=== PATIENT | female | born 1965 | race Caucasian/White ===

== ENCOUNTER 2017-09-10 21:40 | Emergency (ER) | payer MEDICAID, OTHER ==
[2017-09-10] MEDS ORDERED: CHLORDIAZEPOXIDE 25MG PREPK#6 BTL TAKEHOME ONE (22:21)
--- NOTE | 2017-09-10 22:21 | EDPHY ---
H & P Time Seen by Provider: 09/10/17 22:14 HPI/ROS: CHIEF COMPLAINT: Medication for detox HISTORY OF PRESENT ILLNESS: Patient had her mother unexpectedly recently and has been drinking steadily for the past week. She went to detox and was referred here for Librium. The patient says she feels a little bit shaky but does not have nausea vomiting or diarrhea. No confusion. He is ambulatory. REVIEW OF SYSTEMS: Eye: no change in vision ENT: no sore throat Cardiac: no chest pain or syncope Pulmonary: no cough or SOB Abdomen: no vomiting, diarrhea, abdominal pain Musculoskeletal: no back pain Skin: no rash Neuro: no headache Constitutional: no fever : no urinary symptoms A comprehensive 10 point review of systems is otherwise negative aside from elements mentioned in the history of present illness. PAST MEDICAL HISTORY: Includes alcoholism, cholecystectomy, gastric bypass, iron deficiency. Social history: Recent alcohol, last drink 4:30 p.m. Today General Appearance: Alert and conversant, cooperative. Eyes: No scleral icterus. ENT, Mouth: Normal mucous membranes. Respiratory: Normal respiratory effort, breath sounds equal, lungs are clear to auscultation. Cardiovascular: Regular rate and rhythm. Gastrointestinal: Abdomen is soft and non tender. Specifically does not have Alberts sign or right upper quadrant tenderness. Neurological: Alert, face symmetric, normal motor and sensory in extremities. Not actively tremulous or shaky, not confused. Skin: Warm and dry, no rashes. Musculoskeletal: No peripheral edema. Psychiatric: Depressed affect, but cooperative. Emergency Department course/MDM: Appears clinically stable to go to detox with Librium. Does not appear to be actively be in withdrawal at this time. Smoking Status: Heavy smoker Constitutional: Initial Vital Signs Temperature (C) 36.5 C 09/10/17 21:58 Heart Rate 71 09/10/17 21:58 Respiratory Rate 18 09/10/17 21:58 Blood Pressure 115/77 09/10/17 21:58 O2 Sat (%) 99 09/10/17 21:58 O2 Delivery Mode Room Air Allergies/Adverse Reactions: latex Allergy (Verified 08/24/14 12:41) Home Medications: Medication Instructions Recorded FLUoxetine 09/10/17 Hydroxyzine HCl 09/10/17 LORAZEPAM 09/10/17 TOPIRAMATE 09/10/17 buPROPion 09/10/17 traMADol 09/10/17 Departure - Departure Disposition: Home, Routine, Self-Care Clinical Impression: Alcoholic intoxication Qualifiers: Complication of substance-induced condition: uncomplicated Qualified Code(s): F10.920 - Alcohol use, unspecified with intoxication, uncomplicated Condition: Good Instructions: Chlordiazepoxide/Clidinium (By mouth), Alcohol Intoxication (ED) , Alcohol Dependence (ED) Referrals: NONE *PRIMARY CARE P,. [Primary Care Provider] - As per Instructions (Dr. Micha Elmore your doctor in [place]) [facility] Hours [Outside] - As per Instructions
[2017-09-11 06:15] VITALS: BP 114/74; PULSE 67; RESP 16; TEMP 98.1; O2SAT 97
== END 2017-09-10 22:30 | disposition home or self-care (01) ==
DX: F10.920 Alcohol use, unspecified with intoxication, uncomplicated (principal); F17.200 Nicotine dependence, unspecified, uncomplicated; Z91.040 Latex allergy status

== ENCOUNTER 2018-10-10 05:29 | Inpatient (IN) | payer SELFPAY ==
--- NOTE | 2018-10-10 06:00 | EDPHY ---
H & P Source: Patient - Medical/Surgical History Hx Asthma: Yes Hx Chronic Respiratory Disease: No Hx Diabetes: No Hx Cardiac Disease: No Hx Renal Disease: No Hx Cirrhosis: No Hx Alcoholism: No Hx HIV/AIDS: No Hx Splenectomy or Spleen Trauma: No Other PMH: ETOH, CHOLY, GASTRIC BYPASS, IRON DEFICIENCY - Social History Smoking Status: Heavy smoker Time Seen by Provider: 10/10/18 06:00 HPI/ROS: HPI CHIEF COMPLAINT: Logan. HISTORY OF PRESENT ILLNESS: This is a 53-year-old female she presents emergency room with her stating that she is manic. States she is having disorganized thoughts, racing thoughts, she reports she has not slept in 7 days. She feels manic. She also reports she feels anxious. Her brought her here for mental health help. She denies want hurt herself or anybody else. She does states she feels manic. Of note patient refused to open her eyes and keeps a washcloth across her eyes. Additionally she refuses to have the lights put on. Also patient directs the conversation and will not allowed to ask questions. She over talks you with pressured speech. Past Medical History: Significant medical history PTSD, anxiety, anemia Past Surgical History: No recent surgical history Social History: Lives locally, at bedside. Family History: Noncontributory ROS REVIEW OF SYSTEMS: Limited to patient's mental state. Exam Constitutional triage nursing summary reviewed, vital signs reviewed, awake/ alert. Eyes normal conjunctivae and sclera, EOMI, PERRLA. HENT normal inspection, atraumatic, moist mucus membranes, no epistaxis, neck supple/ no meningismus, no raccoon eyes. Respiratory clear to auscultation bilaterally, normal breath sounds, no respiratory distress, no wheezing. Cardiovascular rate normal, regular rhythm, no murmur, no edema, distal pulses normal. Gastrointestinal soft, non-tender, no rebound, no guarding, normal bowel sounds, no distension, no pulsatile mass. Genitourinary no CVA tenderness. Musculoskeletal no midline vertebral tenderness, full range of motion, no calf swelling, no tenderness of extremities, no meningismus, good pulses, neurovascularly intact. Skin pink, warm, & dry, no rash, skin atraumatic. Neurologic awake, alert and oriented x 3, AAOx3, moves all 4 extremities equally, motor intact, sensory intact, CN II-XII intact, normal cerebellar, normal vision, normal speech. Psychiatric disorganized thoughts, pressured speech Heme/Lymph/Immune no lymphadenopathy. Differential Diagnosis: Includes but is not limited to in a particular order acute logan, psychosis, bipolar disorder, anxiety, drug intoxication Medical Decision Making: Plan for this patient I have ordered her 10 mg Zyprexa and she feels anxious, has pressured speech and is tangental with disorganized thoughts. Re-evaluation: Plan for patient 10 mg Zyprexa, IV establishment blood draw. Patient will be placed on MIH and needs mental health evaluation. 0809AM: Patient signed over to Dr. Gonzalez. pending eval. (Hubert Zhang) Constitutional: Initial Vital Signs Temperature (C) 37.3 C 10/10/18 06:35 Heart Rate 92 10/10/18 06:35 Respiratory Rate 20 10/10/18 06:35 Blood Pressure 101/69 10/10/18 06:35 O2 Sat (%) 97 10/10/18 06:35 O2 Delivery Mode Room Air Allergies/Adverse Reactions: latex Allergy (Verified 10/10/18 06:34) Home Medications: Medication Instructions Recorded Duloxetine HCl 40 mg PO DAILY 10/10/18 FLUoxetine [Prozac 20 MG (*)] 60 mg PO DAILY 10/10/18 LORazepam [Lorazepam] 1 mg PO BID 10/10/18 Mosquero Carbonate [Mosquero 150 mg PO BID 10/10/18 Carbonate] Prazosin HCl [Minipress 1mg (*)] 2 mg PO HS 10/10/18 Topiramate [Topiramate] 50 mg PO BID 10/10/18 buPROPion [Wellbutrin 100mg (*)] 300 mg PO HS 10/10/18 hydrOXYzine HCL [hydrOXYzine HCL 25 mg PO 5XD 10/10/18 (RX)] Medical Decision Making ED Course/Re-evaluation: 7:00 a.m.-I assumed care of this patient at shift change. She presents with acute logan and is on an MIH. Given Zyprexa 10mg orally during the night cleaner. Awaiting mental health evaluation. 3pm: This patient has been seen by mental health and will be admitted to [facility]. EMTALA completed. (Marbella Gonzalez) I saw this patient again at 4:00 p.m.. She had received Zyprexa orally at about 3:00 p.m.. She still agitated. She agrees to take Ativan orally. 5:20 p.m. Patient is still agitated. She is given Benadryl 50 mg and Haldol 5 mg IM (Ruslan Horne) Differential Diagnosis: Differential diagnosis includes though it is not limited to suicidal ideation, overdose, acute psychosis, self-injury, alcohol withdrawal. (Marbella Gonzalez) - Data Points Laboratory Results: Laboratory Results 10/10/18 06:35 10/10/18 06:35 10/10/18 10/10/18 10/10/18 06:35 06:35 06:35 WBC 6.09 10^3/uL 10^3/uL (3.80-9.50) RBC 4.60 10^6/uL 10^6/uL (4.18-5.33) Hgb 13.1 g/dL g/dL (12.6-16.3) Hct 41.0 % % (38.0-47.0) MCV 89.1 fL fL (81.5-99.8) MCH 28.5 pg pg (27.9-34.1) MCHC 32.0 g/dL L g/dL (32.4-36.7) RDW 16.4 % H % (11.5-15.2) Plt Count 280 10^3/uL 10^3/uL (150-400) MPV 8.9 fL fL (8.7-11.7) Neut % (Auto) 59.3 % % (39.3-74.2) Lymph % (Auto) 25.9 % % (15.0-45.0) Durham % (Auto) 6.7 % % (4.5-13.0) Eos % (Auto) 7.1 % % (0.6-7.6) Baso % (Auto) 0.8 % % (0.3-1.7) Nucleat RBC Rel Count 0.0 % % (0.0-0.2) Absolute Neuts (auto) 3.61 10^3/uL 10^3/uL (1.70-6.50) Absolute Lymphs (auto) 1.58 10^3/uL 10^3/uL (1.00-3.00) Absolute Monos (auto) 0.41 10^3/uL 10^3/uL (0.30-0.80) Absolute Eos (auto) 0.43 10^3/uL H 10^3/uL (0.03-0.40) Absolute Basos (auto) 0.05 10^3/uL 10^3/uL (0.02-0.10) Absolute Nucleated RBC 0.00 10^3/uL 10^3/uL (0-0.01) Immature Gran % 0.2 % % (0.0-1.1) Immature Gran # 0.01 10^3/uL 10^3/uL (0.00-0.10) Sodium 142 mEq/L mEq/L (135-145) Potassium 4.7 mEq/L mEq/L (3.5-5.2) Chloride 108 mEq/L mEq/L (97-110) Carbon Dioxide 24 mEq/l mEq/l (22-31) Anion Gap 10 mEq/L mEq/L (6-14) BUN 17 mg/dL mg/dL (7-23) Creatinine 0.7 mg/dL mg/dL (0.6-1.0) Estimated GFR > 60 Glucose 91 mg/dL mg/dL (70-100) Calcium 9.3 mg/dL mg/dL (8.5-10.4) Salicylates < 1.0 mg/dL L mg/dL (2.0-20.0) Urine Opiates Screen Acetaminophen < 10 mcg/mL L mcg/mL (10-30) Urine Barbiturates Ur Phencyclidine Scrn Ur Amphetamine Screen U Benzodiazepines Scrn Mosquero < 0.2 mEq/L L mEq/L (0.6-1.2) Urine Cocaine Screen U Marijuana (THC) Screen Ethyl Alcohol < 10 mg/dL mg/dL (0-10) 10/10/18 06:30 WBC RBC Hgb Hct MCV MCH MCHC RDW Plt Count MPV Neut % (Auto) Lymph % (Auto) Durham % (Auto) Eos % (Auto) Baso % (Auto) Nucleat RBC Rel Count Absolute Neuts (auto) Absolute Lymphs (auto) Absolute Monos (auto) Absolute Eos (auto) Absolute Basos (auto) Absolute Nucleated RBC Immature Gran % Immature Gran # Sodium Potassium Chloride Carbon Dioxide Anion Gap BUN Creatinine Estimated GFR Glucose Calcium Salicylates Urine Opiates Screen NEGATIVE (NEGATIVE) Acetaminophen Urine Barbiturates NEGATIVE (NEGATIVE) Ur Phencyclidine Scrn NEGATIVE (NEGATIVE) Ur Amphetamine Screen NEGATIVE (NEGATIVE) U Benzodiazepines Scrn NEGATIVE (NEGATIVE) Mosquero Urine Cocaine Screen NEGATIVE (NEGATIVE) U Marijuana (THC) Screen NON-NEGATIVE H (NEGATIVE) Ethyl Alcohol Medications Given: Discontinued Medications Acetaminophen (Tylenol) 650 mg PO EDNOW ONE Stop: 10/10/18 08:00 Last Admin: 10/10/18 08:02 Dose: 650 mg Lorazepam (Ativan) 2 mg PO EDNOW ONE Stop: 10/10/18 16:21 Last Admin: 10/10/18 16:27 Dose: 2 mg Nicotine (Nicoderm Cq) 21 mg TD EDNOW ONE Stop: 10/10/18 15:28 Last Admin: 10/10/18 15:31 Dose: 21 mg Olanzapine (Olanzapine) 10 mg PO ONCE ONE Stop: 10/10/18 06:10 Last Admin: 10/10/18 06:27 Dose: 10 mg Olanzapine (Zyprexa Zydis) 10 mg PO EDNOW ONE Stop: 10/10/18 15:04 Last Admin: 10/10/18 15:10 Dose: 10 mg Departure - Departure Disposition: [facility] IP Clinical Impression: Logan Condition: Fair Referrals: NONE *PRIMARY CARE P,. [Primary Care Provider] - As per Instructions
[2018-10-10] MEDS ORDERED: OLANZapine 5 MG TAB PO ONE (06:09)
[2018-10-10 06:43] LABS: PLATELET COUNT 280 10^3/uL (150-400)
[2018-10-10] MEDS ORDERED: ACETAMINOPHEN 325 MG TAB PO ONE (07:59)
[2018-10-10] MEDS ORDERED: OLANZapine DISINTEGR 10 MG TAB PO ONE (15:03)
[2018-10-10] MEDS ORDERED: NICOTINE 21 MG/24 HR PATCH TD ONE (15:27)
[2018-10-10] MEDS ORDERED: LORazepam 1 MG TAB PO ONE (16:20)
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
--- NOTE | 2018-10-10 17:15 | ASMTTCLDSP ---
TLC Discharge Disposition Disposition: Answers: Admit Disposition Notes: Notes: In consultation with [facility] ED physician, Ruslan Horne MD and on-call collection teller, Leonidas Huggins MD, both concurred that pt appears to meet 27-65 criteria requiring psychiatric hospitalization as pt appears to be at risk of harm to self due to a mental illness condition. Pt was read the Patient Rights and Responsibilities Statement on 10/10/18 at 15:45 the original placed on chart, and pt was given photocopy of Rights. Pt signed the Patient Rights. Pt was given the [facility] prohibited belongings list while in the ED.: Discharge Concerns/Recommendations: Notes: Admit to [facility] inpt BH unit. Was patient given the Answers: Yes Inpatient Behavioral Health Prohibited Belongings List while in the ED? For inpatient Leonidas Huggins AP[facility] admission, the following psychiatrist agreed to accept patient for admission to Behavioral Health ([facility]): Type of Hold: Answers: M1/72-hour Hold Hold initiated by: Answers: ED Physician Date Signed: 10/10/2018 05:15 PM Electronically Signed By:Beverly Durand
[2018-10-10] MEDS ORDERED: HALOPERIDOL LACT 5 MG/ML INJ IVP ONE (17:24)
--- NOTE | 2018-10-10 18:12 | PDCONSULT ---
Grocery Store Clerk Note: The patient is a 53-year-old female with past medical history of bipolar and depression who presented to the emergency room with complaints of not sleeping since about August of this year. According to her and her the patient sleeps maybe 1 hr a day and this is been ongoing since about August of this year. However in the last few weeks it has worsened patient has been sleeping very little if at all. In the last few days she has started acting weird ir with some nonsensical speech and irritability. However she denied any nausea vomiting, dysuria diarrhea chest pain or other physical symptoms to me. Past medical history Bipolar Past surgical history Gastric bypass Social history She smokes tobacco but would not say how much She also uses marijuana Family history Noncontributory Allergies Latex Medications As outlined in the medication reconciliation However patient says that she has progressively been getting less and less of these and may have stopped completely lately Review of systems Ten point review of systems was negative except as outlined above in HPI Examination Vitals blood pressure is 111/59 heart rate is 78, respirations 16, saturating 97 % on room air, temperature is 36.4 degrees C General well-nourished well-developed female talking to herself. HEENT PERRLA mucous members moist pink and acyanotic head is atraumatic normocephalic Lungs are clear to auscultation bilaterally Cardiovascular regular rhythm and rate no murmurs rubs or gallops Abdomen is soft nontender nondistended in all 4 quadrants with positive bowel sounds no guarding or rebound no organomegaly no CVA tenderness Extremities are with no clubbing cyanosis edema or calf pain Skin with no lesions rashes or ecchymosis Neuro cranial nerves 2-12 grossly intact no focal neurologic deficits Lymph no lymphadenopathy Musculoskeletal strength is 5/5 range of motion is full and normal Assessment plan 53-year-old female with past medical history of bipolar disorder likely off of her meds presents with manic behavior not sleeping and acute psychosis I reviewed the chart and discussed the case with the emergency room physician the patient has been given Haldol and Ativan for her agitation. I reviewed her chart and records as the patient is new to me. Aside from her acute decompensation she has no lab abnormalities and her vitals are all within normal limits her examination is reassuring as well. I recommend admission to [facility] for re-initiation of her medications for bipolar disorder along with p.r.n. Ativan for agitation and insomnia.
[2018-10-10] MEDS ORDERED: OLANZapine DISINTEGR 10 MG TAB PO PRN (21:53)
[2018-10-10] MEDS ORDERED: MAGNESIUM HYDROXIDE 30 ML UDCUP PO PRN (21:53)
[2018-10-10] MEDS ORDERED: MAG HYDROX/AL HYDROX/SIMETH 30 ML UDCUP PO PRN (21:53)
[2018-10-10] MEDS ORDERED: NICOTINE POLACRILEX 2 MG GUM B PRN (21:53)
[2018-10-11] MEDS ORDERED: NICOTINE 21 MG/24 HR PATCH TD SCH (09:00)
--- NOTE | 2018-10-11 11:06 | ASMTBHMTP ---
Master Treatment Plan Master Treatment Plan Answers: Mood Instability with for: Psychosis Date: 10/11/2018 Diagnosis on Admission: Major Depressive Disorder, recurrent, with psychotic features 296.34, Posttraumatic Stress Disorder 309.81 Expected length of stay: 3-5 Days Reason for admission: Notes: Pt is a 53 year old female who presents to the [facility] ED with her stating she is manic. Pt upon presentation was noted to be disorganized, having racing thoughts and said she had not slept in 7 days. Pt also reported anxiety. It was documented by Physician upon initial exam that she refused to open her eyes and kept a washcloth across her eyes. Pt also refused to have the lights on for her physical examination. Pt would not allow Physician to ask her questions. She presented with pressured speech and over talked any questions. Pt was given 10 mg of Zyprexa and placed on a medical hold for her mental health evaluation. Pts utox was positive for marijuana. Collateral inform was obtained from the and her daughter. Daughter is a mental health provider and she described the following observations which include: Pt has been having episodes of sleeping only a few hours, 2-3 per night, some nights not at all despite taking sleeping meds. Daughter reported disorganized thoughts, paranoid delusions, barricading herself in the room including blacking out the windows. Daughter stated at times pt is not orientated to time such as not knowing day of week or month. Daughter reported over the past year she has observed a decline in pt.s cognitive functioning including word finding and significant grammar problems even though pt has a Masters Degree in Amharic. Daughter stated pt had told her she had written 150 poems in a 2-3 day period. It was also felt by the daughter pt has been exhibiting hyper confucianism and hypersexual behavior. Daughter stated pt has a long hx of depression and anxiety and she feels as a clinician pt may have bipolar disorder. It was also reported pt never drank until she was 48 years old. She has some periods when she does not drink but overall her drinking has been problematic. 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 Daughter feels pt is in need of hospitalization due to severe MH decline. It was reported pt has been expressing passive SI. stated he was woken up at 3am this morning by his who said she was having a mental crisis and needs to go to the hospital. reported he has been unsuccessful in getting pt to go for treatment or go to the hospital on prior occasions. Pt typically uses marijuana once a day but especially for the past few days she has been using almost nonstop. Per contact with [facility] pt is an active client with [facility] but has not been seen by her provider since Jul. Pt was a no show to her last scheduled in September. Prior diagnosis from [facility] is PTSD, Major Depressive Disorder and Alcohol Use Disorder/Severe. Patient's stated presenting problems: Notes: Pt. reports having "four serious medical conditions" as well as some mental health diagnosis. Pt. shared she recently lost her medicaid and has struggled to get her medications. Patient's goals for treatment: Notes: Pt. stated her goal is to get an "accurate diagnosis", and help with Medicaid. Patient's strengths: Notes: Pt. stated when she is calm she "can take correction or discipline/advice". Identify supports outside of hospital: Notes: Pt. stated she feels supported by her and daughter. Discharge criteria: Notes: Patient will demonstrate more stable mood by discharge. Initial disposition plan/considerations: Notes: Pt. reports she plans to return home to [place] Master Treatment Plan Required Signatures Psychiatrist signature: Answers: Grant Perdomo MD: RN on-shift signature: Answers: RN: Patient signature: Answers: Patient: Date Signed: 10/11/2018 11:05 AM Electronically Signed By:Laura Edwards
[2018-10-11] MEDS: NICOTINE 21 MG/24 HR PATCH TD PRN (16:16)
[2018-10-11] MEDS: LORazepam 0.5 MG TAB PO PRN ×2 (16:25→22:07)
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
[2018-10-11] MEDS ORDERED: OLANZapine DISINTEGR 10 MG TAB PO PRN (17:31)
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
[2018-10-11] MEDS: ACETAMINOPHEN 325 MG TAB PO PRN (22:07)
[2018-10-12] MEDS: LORazepam 0.5 MG TAB PO PRN ×2 (13:13→21:35)
[2018-10-12] MEDS: NICOTINE 21 MG/24 HR PATCH TD PRN (17:18)
--- NOTE | 2018-10-12 19:53 | SOAPPROG ---
SOAP Progress Note Assessment/Plan: Assessment: The patient is a 53-year-old female with past medical history of depression, PTSD, alcohol dependence who presented to the emergency room with complaints of not sleeping since about August of this year. According to her and her the patient sleeps maybe 1 hr a day and this is been ongoing since about August of this year. In the last few days she has started acting weird with some nonsensical speech and irritability. Plan: 10/12/18 19:45 1. Patient requests Sudafed for allergies. 2. Patient told CM that she lost her Medicaid in December 2017 and hasn't seen provider or gotten new prescriptions. 3. Patient has been using PRN Ativan since admission to treat anxiety. 4. Patient has h/o pretty serious alcohol dependence. She was in several altercations with police when she was drunk. Her also reports patient has been doing THC "nonstop" every day for past few weeks. It's likely that patient's altered mental status and strange behavior over past few weeks is a direct result of her increased drug and alcohol use. MD would not recommend continuing patient on psychotropic medications that can cause serious adverse effects when combined with alcohol and other mood-altering drugs. Given patient' s confusion, nonsensical speech, impaired judgment prior to admission, would not recommend starting her back on psych meds until her mental status improves. 5. Patient has court hearing for charge from 09/06/18. 6. No change to treatment at this time. Subjective: Patient had a couple visits with her today. They wrote down a long list of sxs that have been causing problems for patient over past couple of months. Patient admits she lost her Medicaid insurance in December 2017 d/t being in half-way. Since then, patient has not seen MH provider or taken any psychotropic medications. She wrote in her journal that she had to "self-medicate with alcohol," which she said "resulted in being arrested" and "put in half-way." Given patient's past h/o serious alcohol dependence and her recent behavior while intoxicated, MD does not think this patient should be on psychotropic medications that can cause serious adverse effects for patient's mental function and her physical health. MD suggested patient may need to do intensive substance use disorder treatment before she can resume psych meds. also stressed the potential risks associated with using THC, including impaired cognition, increased mood swings, and impaired judgment. Per family, these are exactly the kinds of sxs patient has exhibited for several months. Patient is at risk of resuming these same behaviors if she doesn't get intervention targeted to her drug use. Objective: Vital Signs Temp Pulse Resp BP Pulse Ox 36.4 C 70 12 108/56 L 94 10/12/18 06:00 10/12/18 06:00 10/12/18 06:00 10/12/18 06:00 10/12/18 06:00 MSE: Affect: Blunted Mood: "OK" TP: Disorganized TC: Denies any SI/HI, less paranoid Perception: Denies any AH/VH Insight/Judgment: Poor - Time Spent With Patient Time Spent With Patient: 20" - Pending Discharge Pending Discharge Within 24 Hours: No Pending Discharge Within 48 Hours: No ICD10 Worksheet Patient Problems: Problems Problem Status Onset Su Acute
[2018-10-12] MEDS: PSEUDOEPHEDRINE HCL 30 MG TAB PO PRN (21:34)
[2018-10-12] MEDS: ACETAMINOPHEN 325 MG TAB PO PRN (23:35)
[2018-10-13] MEDS: LORazepam 0.5 MG TAB PO PRN (05:14)
[2018-10-13] MEDS: ACETAMINOPHEN 325 MG TAB PO PRN (05:17)
[2018-10-13] MEDS ORDERED: LORazepam 0.5 MG TAB PO PRN (05:39)
[2018-10-13 05:40] VITALS: BP 114/59
--- NOTE | 2018-10-13 06:25 | SOAPPROG ---
SOAP Progress Note Assessment/Plan: Assessment: MDD, NAOMI, PTSD, and ETOH use disorder. No improvement noted. (see subjective/ objective note). Patient could benefit from continued inpatient hospitalization for crisis stabilization, safety, medication evaluation, and to establish safe discharge plan including follow-up appointments. Consider discharge tomorrow. Plan: 1. Psychotropic medications: After reviewing options, risks, and benefits, patient agrees to Naltrexone 50 mg po QD, Prazosin 1 mg po QHS, Zoloft 50 mg po QD, and Gabapentin 400 mg po TID. No medication changes at this time as more time is needed to determine ongoing tolerability and efficacy. Plan is to continue to observe patient for response and side effects from medications, and ongoing monitoring and evaluation. 2. Review with patient informed consent and recommendations for psychotropic medication treatment listed below 3. Labs: no additional at this time 4. Therapy: continue milieu and group therapy 5. Further investigation including gathering information from patients relatives and review of past case records to inform treatment plan. 6. Safety/Wellness plan and follow-up outpatient appointments to be established prior to discharge. Next steps are for patient to meet with wound care physician to plan a safe discharge plan and establish outpatient services for ongoing treatment. 7. Confer with inpatient treatment team regarding treatment plan. 8. Psychosocial stressors addressed through rn case manager hospice. 9. Legal status: voluntary 10. Consider discharge this week if patient is in stable condition, safe, and has a safe discharge plan. PSYCHOTROPIC MEDICATION TREATMENT INFORMED CONSENT and RECOMMENDATIONS: Review nature of condition, diagnosis, and prognosis. Review nature and purpose of psychotropic medication treatment. Review type of psychotropic medications being ordered. Review risk and benefits of psychotropic medication treatment. Review probable length of time patient will need to take medications. Review risk and benefits of not undergoing psychotropic medication treatment. Review alternative treatments to psychotropic medications. Review psychotropic medications contraindications, drug-drug interactions, side effects, and importance of reporting any side effects to a psychiatric provider or nurse during inpatient hospitalization, and upon discharge to patients psychiatric outpatient provider, primary care provider, or other health health and social care teacher. Review importance of asking a nurse, psychiatric provider, or primary care provider any questions or problems concerning the psychotropic medications. Verify patient understands the information that has been provided, and understands, accepts, and agrees to psychotropic medications. Review patients safety plan and importance of patient to report to staff while hospitalized if patient is ever a danger to self/others, or unable to care for self, and upon discharge, the importance for patient to contact [facility] or [facility], or go to the nearest emergency room, if patient is ever a danger to self/others, or unable to care for self. Recommend that upon discharge patient establish medication management treatment with a psychiatric provider, establishes routine therapy appointments, and follow-up with primary care provider. Verify patient understands and agrees to these recommendations. 10/13/18 06:26 Subjective: Following up with patient for evaluation of mood and safety. Patient reports, "I am really anxious." Patient expresses the following psychiatric symptoms severe anxiety. Discuss options, risks, and benefits for psychotropic medications for MDD, NAOMI, PTSD, and ETOH use disorder with patient and patient agrees to Naltrexone 50 mg po QD, Prazosin 1 mg po QHS, Zoloft 50 mg po QD, and Gabapentin 400 mg po TID. Patient agrees to discontinue Ativan d/t hx of ETOH abuse. Objective: Vital Signs Temp Pulse Resp BP Pulse Ox 36.5 C 72 14 114/59 L 95 10/13/18 05:39 10/13/18 05:39 10/13/18 05:39 10/13/18 05:39 10/13/18 05:39 SE: The patient is a well-nourished female looking stated chronological age. Attire is appropriate dress is hospital garb. Grooming status is appropriate. Ambulation is independent. Gait is normal and coordinated. Posture is normal. Eye contact is appropriate. Motor activity is appropriate with purposeful, organized, coordinated movements; with no involuntary movements. Attitude is cooperative. Patient appears attentive and relates well to this interviewer. Language production is spontaneous. R/R/V normal. Articulation is clear. Patient reports mood as anxious with congruent affect. Patients thought process is linear and logical with no signs of thought disorder. Patient does not report suicidal/homicidal thoughts, ideas, or plans. Patient reports she currently feels safe, and reports no self-injurious ideation. Patient denies auditory, visual hallucinations. Patient denies delusions. Patient does not appear to be attending to internal stimuli. Patients attention and concentration are fair. Patient is oriented to person, place, time. Patients insight is poor. Patients judgment is poor. - Time Spent With Patient Time Spent With Patient: 15 minutes, met with patient individually. - Pending Discharge Pending Discharge Within 24 Hours: No Pending Discharge Within 48 Hours: No ICD10 Worksheet Patient Problems: Problems Problem Status Onset Su Acute
[2018-10-13] MEDS: PSEUDOEPHEDRINE HCL 30 MG TAB PO PRN (07:08)
[2018-10-13] MEDS ORDERED: NALTREXONE HCL 50 MG TAB PO SCH (09:00)
[2018-10-13] MEDS ORDERED: SERTRALINE HCL 50 MG TAB PO SCH (09:00)
[2018-10-13] MEDS ORDERED: GABAPENTIN 400 MG CAP PO SCH (09:00)
--- NOTE | 2018-10-13 12:03 | ASMTCMCOM ---
CM Note CM Note Notes: The patient participated in clinical treatment team rounds. She was tangential, anxious, labile, and tearful. She presented with psychomotor agitation AEB shaking hand and pressured speech. She expressed multiple somatic and medical complaints including impaired vision/hearing, aphasia, anemia, memory loss, suspected TBI(s), etc. The patient reported "night terrors;" last onset in childhood including possible AH, "...Whispering to me 'If you tell anyone you'll get in trouble. They will discharge you.'" The patient reported having received only "30 hours of sleep in the past 60 days." The patient reported the following reasons for not wanting to continue with her [facility] outpatient team: I missed my appointments due to memory issues. They changed my medications without telling me or doing blood work. I dont think they know what is wrong with me. I was having to walk to my appointments. They said there were sicker people than me. I think they are too full. My counselor talked about her self the entire session to make a point but it wasnt helpful. Date Signed: 10/13/2018 12:02 PM Electronically Signed By:Treva Chin
--- NOTE | 2018-10-13 13:38 | BDS ---
[f rep st] BEHAVIORAL HEALTH DISCHARGE SUMMARY REASON FOR ADMISSION: From the ED note dated 10/10/2018, patient presented to the Emergency Department with her . The patient reported having racing thoughts, not sleeping, feeling manic. The patient reported anxiety. Patient was admitted involuntarily on an M1 hold due to being gravely disabled due to a mental illness. Patient was admitted for safety, crisis stabilization, and medication management. ADMITTING DIAGNOSES: 1. Posttraumatic stress disorder. 2. Alcohol use disorder, severe dependence. 3. Major depressive disorder, severe. 4. Cannabis use disorder, severe. ADMISSION PHYSICAL EXAM: Patient was seen on 10/10/2018, for history and physical consultation for medical clearance for inpatient psychiatric hospitalization and treatment. The patient was medically cleared for inpatient psychiatric hospitalization and treatment. For further details, please refer to security system sales consultant note document dated 10/10/2018. ADMISSION LABS: 1. CBC within normal limits except MCHC was low at 32.0, RDW was elevated at 16.4, and absolute eosinophils were elevated at 0.43. 2. BMP within normal limits. 3. Hemoglobin A1c within normal limits at 5.4. 4. Liver function within normal limits. 5. Lipid panel within normal limits. 6. Toxicology screen was non-negative for THC, negative for all other substances screened and negative for ethyl alcohol. MAJOR PROCEDURES OR TESTS: None. HOSPITAL COURSE: The most prominent symptoms and behaviors while the patient was here were reports of severe anxiety. Treatment modalities utilized were milieu and group therapy. Plan was to begin gabapentin 400 mg p.o. t.i.d. for anxiety symptoms, prazosin 1 mg p.o. q. h.s. for nightmares, Zoloft 50 mg p.o. q. day for mood symptoms and naltrexone 50 mg po QD for alcohol dependence. These medications were to begin 10/13/2018. The patient reported her preference was to discharge today, and agrees with plan for to follow-up with an outpatient provider for ongoing medication management. Medications were discontinued, and patient reports she plans to follow up on an outpatient basis for ongoing medication evaluation and treatment. Patient has improved considerably with no signs of psychiatric symptoms and no psychiatric symptoms expressed. Patient reports she has improved since admission, states to be in stable condition, feels safe to discharge, and she contracts for safety. Patients response to treatment was good. There were no adverse or unexpected results of treatment. The patient was safe throughout stay, active in treatment , engaged in groups, and was appropriate with staff. Patient met with treatment team prior to discharge to assess readiness to discharge and review discharge plan. The treatment team consensus is the patient in stable condition , has a safe discharge plan, and is ready to discharge today. CONDITION AT DISCHARGE: Patient is in stable condition and is no longer a danger to self or others, and is not gravely disabled due to mental illness. Patient is no longer in need of inpatient level of care, and can be safely and effectively treated within the community. The patients level of risk at time of discharge is low. MSE: The patient is casually dressed and with good hygiene , and looks stated age. Patient is sitting, posture is upright, and position is relaxed. Patient appears awake, alert, and responds appropriately and reasonably during interview. Patient is engaged, relates well to interviewer, and emotional facial expression is appropriate to situation and changes appropriately with topic. Patient is cooperative, makes comfortable eye contact , and movements are voluntary, deliberate, coordinated, and smooth and even with no inappropriate movements. Patient makes laryngeal sounds effortlessly and shares conversation appropriately; pace of conversation is appropriate, and stream of talking is fluent; articulation is clear and understandable; word choice is effortless and appropriate for education level; completes sentences, occasionally pausing to think; rate and volume are appropriate for interview and setting. Patient reports mood as euthymic. Patients affect is stable with full variable range, congruent with mood, and appropriate to speech and circumstances. Patient has linear and logical thinking, with no loose associations, tangential thought, thought blocking, concrete thinking, or any other signs of formal thought disorder. Patient denies suicidal and homicidal ideation, and denies hallucinations and delusions. Patient appears to be a reliable historian with sound judgement and good insight into current condition. Patient has no apparent dysfunction in recent or remote memory noted , and no evidence of gross cognitive dysfunction noted at any point during the interview. DISCHARGE DIAGNOSES: 1. Generalized anxiety disorder. 2. Posttraumatic stress disorder. 3. Alcohol use disorder, severe dependence. 4. Major depressive disorder, severe. 5. Cannabis use disorder, severe. 6. Rule out bipolar disorder. CURRENT MEDICATIONS: The patient reports she plans to follow up on an outpatient basis for ongoing medication management. The patient requests no prescriptions at time of discharge. DISPOSITION: Patient left hospital independently and voluntarily with her and plans to return home with her . FOLLOWUP: technical services coordinator reports the appropriate outpatient follow-up services have been established and outpatient appointments have been scheduled. The patient received written instructions with times and dates of outpatient follow-up appointments. The following follow-up recommendations were provided to the patient at discharge: Continue psychotropic medications as prescribed and attend appointments as scheduled. Report any side effects to a psychiatric outpatient provider, a primary care provider, or other health health care coach. Address any questions or problems concerning the psychotropic medications with a psychiatric outpatient provider, a primary care provider, or other health health care coach. Contact [facility] or [facility], or go to the nearest emergency room, if you are ever a danger to yourself/others, or unable to care for yourself. As soon as possible, establish a routine medication management treatment with a psychiatric provider, establish routine therapy appointments, and follow-up with a primary care provider. SUBSTANCE ABUSE BRIEF INTERVENTION: Brief intervention regarding the risks of cannabis and alcohol abuse is provided to patient with goal to reduce the risk of harm that could result from the continued use of cannabis and alcohol, with the general aim to investigate the problem, raise awareness of problem, develop a solution with the patient, recommend a specific change or activity, and motivate the patient toward change. Assess substance abuse behavior and give supportive advice about harm reduction, recommend a reduction in hazardous/at- risk consumption patterns, and facilitate referrals for additional specialized treatment with medicare nurse. Intermediate goal is for the patient to quit and attend outpatient substance abuse treatment. Intervention focus on intermediate goals to allow for more immediate success in the treatment process to keep the patient motivated. Review following with patient: Cannabis use risks: Short-term use: impaired short-term memory, impaired motor coordination, altered judgement, in high doses paranoia and psychosis. Long-term use addiction, diminished life satisfaction and achievement, symptoms of chronic bronchitis, and increased risk of chronic psychosis disorders if predisposition to such disorders. In withdrawal anger, aggression irritability, anxiety and nervousness, decreased appetite or weight loss, restlessness, and sleep difficulties with strange dreams. Alcohol/Binge Drinking risks: short-term: injuries, violence, alcohol poisoning, risky sexual behaviors. Long-term: high blood pressure, stroke, liver disease, digestive problems, cancer, learning and memory problems, depression and anxiety, social problems, and alcohol dependence. OUTPATIENT SUBSTANCE ABUSE TREATMENT: Patient referred to outpatient provider and treatment for continued treatment related to substance abuse. PATIENT RESPONSE TO INTERVENTION: Patient minimizing and seems to be in denial at this time regarding abuse of cannabis and alcohol. LEGAL COURSE: The patient was admitted on an M1 hold for involuntary inpatient psychiatric hospitalization and treatment. The patient discharged today independently and voluntarily. ATTITUDE AT TIME OF DISCHARGE: The patients attitude was positive at time of discharge, and patient reports looking forward to discharging today. The patient reports she feels safe to discharge, is no longer a danger to herself or others, is in stable condition, and contracts for safety. Patient states she will continue medications as prescribed, and establish medication management treatment with an outpatient provider after discharge. Patient reports she understands the information that has been provided to her, and she understands, accepts, and agrees to psychotropic medications. Patient describes internal protective factors as the coping skills she has learned while hospitalized here, and she plans to continue to practice these coping skills after discharge. LABS AND STUDIES: There were no pending labs or studies at time of discharge. ADVANCE DIRECTIVES: There were no advance directives on file, and patient was full code during this hospitalization. The following psychotropic medication treatment informed consent and recommendations were provided to the patient at time of discharge. Patient reports she understands, accepts, and agrees to the information that has been provided. PSYCHOTROPIC MEDICATION TREATMENT INFORMED CONSENT and RECOMMENDATIONS: Review nature of condition, diagnosis, and prognosis. Review nature and purpose of psychotropic medication treatment. Review type of psychotropic medications being prescribed. Review risk and benefits of psychotropic medication treatment. Review probable length of time will need to take medications. Review risk and benefits of not undergoing psychotropic medication treatment. Review alternative treatments to psychotropic medications. Review psychotropic medications contraindications, side effects, and importance of reporting any side effects to a psychiatric provider, primary care provider, or other health health care coach. Review importance of her asking a psychiatric provider or primary care provider any questions or problems concerning the psychotropic medications. Review importance of reporting to a psychiatric provider, primary care provider, or other health health care coach if she plans to or becomes . Review safety plan and the importance to contact [facility] or [facility] , or go to the nearest emergency room, if ever a danger to yourself/others, or unable to care for yourself. Recommend upon discharge to establish routine medication management treatment with a psychiatric provider, establish routine therapy appointments, and follow-up with a primary care provider. Verify patient understands, accepts, and agrees to the information that has been provided. /[id number]/MODL MTDD
[2018-10-13] MEDS ORDERED: PRAZOSIN HCL 1 MG CAP PO SCH (21:00)
== END 2018-10-13 13:48 | disposition home or self-care (01) | DRG 897 ==
LOC: EEVIPCON 05:29 → BBEH 18:50
PROVIDERS: ADMIT Registered Nurse; ATTEND Psychiatry & Neurology Psychiatry
DX: F12.288 Cannabis dependence with other cannabis-induced disorder (principal); F10.288 Alcohol dependence with other alcohol-induced disorder; F41.1 Generalized anxiety disorder; F43.12 Post-traumatic stress disorder, chronic; F33.2 Major depressive disorder, recurrent severe without psychotic features
CPT/HCPCS: 80305; 96374; G0480; J1200; J1630